=== PATIENT | female | born 1955 | race Caucasian/White ===

== ENCOUNTER 2018-01-22 13:36 | Emergency (ER) | payer OTHER, MEDICARE ==
[~2018-01-22] VITALS: Ht 167.6 cm; Wt 72.6 kg
[2018-01-22 13:52] VITALS: BP 156/100
--- NOTE | 2018-01-22 14:01 | ED GENERAL ADULT ---
History of Present Illness General Chief Complaint: Facial or Head Injury Stated Complaint: + HEAD STRIKE, OVER RIGHT EYE,-LOC, -BLOOD THINNER Source: patient Exam Limitations: no limitations Vital Signs & Intake/Output Vital Signs & Intake/Output Vital Signs Date Time Temp Pulse Resp B/P B/P Pulse O2 O2 Flow FiO2 Mean Ox Delivery Rate 01/22 1352 99.0 74 18 156/100 99 Room Air Allergies Coded Allergies: cephalexin (From KEFLEX) (Mild, ITCHING AND BRUISING 01/22/18) Uncoded Allergies: IV CONTRAST (Severe, NEAR SYNCOPE 01/22/18) Triage Note: RECVEIVED 62 YO FEMALE S/P TRIP AND FALL PRIOR TO ARRIVAL. PT TRIPPED AND HIT HER RIGHT UPPER EYE ON A WINDOW SILL [employer]. PT DENIES LOC. NO DIZZINESS PRIOR TO FALL. MILD NAUSEA, NO VOMITING. SWELLING NOTED ABOVE RIGHT EYE AND EYELID.NO BLEEDING NOTED. PT REFUSING PAIN MEDS IN TRIAGE Triage Nurses Notes Reviewed? 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 Patient states that she tripped and fell striking her head on a windowsill. Denies loss of consciousness. Is not on any anticoagulation. Denies headaches, nausea, vomiting. Denies any other pain from the fall. (Loli Hope) Reconcile Medications Citalopram Hydrobromide (Citalopram HBr) 10 MG TABLET 1 TAB PO DAILY ANXIETY (Reported) Latanoprost 0.005 % DROPS 1 GTT OPH QPM EYE (Reported) Levothyroxine Sodium 75 MCG TABLET 1 TAB PO DAILY THYROID (Reported) Timolol Maleate 0.5 % DROPS 1 GTT OPH QAM EYE (Reported) (Dereck Hightower DO) Past History Travel History Traveled to [place] past 21 day No Medical History Any Pertinent Medical History? see below for history EENT: blindness Surgical History Surgical History: non-contributory Psychosocial History What is your primary language Azeri Family History Hx Contributory? No (Loli Hope) Review of Systems Review of Systems Constitutional: Reports: no symptoms. EENTM: Reports: no symptoms. Respiratory: Reports: no symptoms. Cardiovascular: Reports: no symptoms. GI: Reports: no symptoms. Genitourinary: Reports: no symptoms. Musculoskeletal: Reports: no symptoms. Skin: Reports: see HPI. Neurological/Psychological: Reports: no symptoms. Hematologic/Endocrine: Reports: no symptoms. Immunologic/Allergic: Reports: no symptoms. All Other Systems: Reviewed and Negative (Loli Hope) Physical Exam Physical Exam General Appearance: well developed/nourished, no apparent distress, alert, awake Comments: Primary Survey: Airway: intact Breathing: breath sounds equal bilaterally Circulation: 2+ distal pulses Disability: a&ox3, pupils not reactive and irregular (likely baseline) Secondary Survey: Head: Normocephalic, no skull depressions/deformities, positive right forehead hematoma Ears: No hemotympanum Nose: No epistaxis or septal hematomas Throat/mouth : No oral lacerations, no missing teeth Face: No abrasions/lacerations, no crepitus or deformities Neck: No midline TTP, unrestricted c-spine ROM Heart: Regular rate and rhythm Lungs: Clear to auscultation bilaterally with normal air entry Chest: Nontender, no flail segments Abdomen: Soft, nontender, nondistended, normal bowel sounds Pelvis: Non-tender and stable to AP and lateral compression Extremities: Normal range of motion of all joints, no abrasions/lacerations Neurologic: Cranial nerves grossly intact, no motor/sensory deficitis, cerebellalr function intact Skin: warm and dry and without ecchymoses or abrasions Back: No midline TTP of C-spine, T-spine, or L-spine Rectal exam: deferred Core Measures ACS in differential dx? No CVA/TIA Diagnosis: No Sepsis Present: No Sepsis Focused Exam Completed? No (Loli Hope) Progress Differential Diagnoses I considered the following diagnoses in my evaluation of the patient: [Forehead hematoma versus cranial fracture versus facial fracture versus ICH versus vertebral fracture versus concussion] Plan of Care: Orders Procedure Date/time Status CT FACE/SINUS WITHOUT CONT 01/[address] HEAD WO IV CONTRAST 01/[address] CERV SPINE WO IV CONTRAST 01/[address] scan IMPRESSION: 1. No acute intracranial pathology. 2. Right frontal scalp hematoma and right periorbital soft tissue swelling. However, no evidence of globe or orbital injury. 3. There are no facial bone fractures. 4. No acute fracture or malalignment of the degenerated cervical spine. Patient declining any pain meds. Appears to have isolated hematoma from the fall, no other apparent injuries. Cleared for discharge home. She will use [id number] pain medications if she needs them. Given strict return precautions. Initial ED EKG: none (Loli Hope) Departure Departure Disposition: HOME OR SELF CARE Condition: Stable Clinical Impression Primary Impression: Traumatic hematoma of forehead Secondary Impressions: Fall Referrals: Cecille SANCHEZ,Serge Reynolds (PCP/Family) Additional Instructions: Use Tylenol or ibuprofen as needed for pain. Follow-up with your primary care provider for reevaluation. Return to the emergency department for any new or worsening symptoms. Departure Forms: Customer Survey General Discharge Information (Loli Hope) PA/TYPE CUTTER Co-Sign Statement Statement: ED Attending supervision documentation- [] I saw and evaluated the patient. I have also reviewed all the pertinent lab results and diagnostic results. I agree with the findings and the plan of care as documented in the PA's/TYPE CUTTER's documentation. [X] I have reviewed the ED Record and agree with the PA's/TYPE CUTTER's documentation. [] Additions or exceptions (if any) to the PAs/TYPE CUTTER's note and plan are summarized below: [] (Dereck Hightower DO) Critical Care Note Critical Care Note Critical Care Time: non-applicable (Loli Hope)
--- NOTE | 2018-01-22 15:29 | CT SCAN REPORT ---
EXAMINATION: CT HEAD W/O IV CONTRAST CT CERVICAL SPINE W/O IV CONTRAST CT FACE/SINUS WITHOUT CONTRAST CLINICAL INFORMATION: 62-year-old female status post fall. Evaluate for cervical spine fracture, facial fracture and intracranial hemorrhage. COMPARISON: CT of paranasal sinuses, 04/30/2010. Radiographs of cervical spine, 10/30/2013 TECHNIQUE: Head - Contiguous axial imaging of the head was performed from the skull base to the vertex without the administration of intravenous contrast, and axial images are reconstructed at 0.625 mm, 2.5 mm and 5 mm slice thickness. Cervical spine and facial bones - Volumetric, helical CT acquisitions of the cervical spine and facial bones were obtained without contrast; in addition to the standard set of axial images, multiplanar reformatted images were provided in the coronal and sagittal imaging planes. DLP: 1426 mGy-cm (total) FINDINGS: HEAD: No evidence of intracranial hemorrhage, major vascular territory infarction, focal mass effect or midline shift. Mead to white matter differentiation is preserved. The ventricles have normal size and configuration. The sulci and basilar cisterns are unremarkable. No extra-axial fluid collections. The calvarium is intact and the mastoid air cells and middle ear cavities are clear. FACIAL BONES: A right frontal scalp hematoma measures 0.6 cm AP and there is right periorbital soft tissue swelling. The globes and orbital singh, including lamina papyracea, are intact. Incidentally noted is protrusion of the posterior scleral-uveal coats of each globe -- as may be seen in staphyloma. There is focal calcification of the region of insertion of the left medial rectus muscle. The orbital apex, optic canals, and retrobulbar fat planes are normal. The maxilla, mandible and temporomandibular joints are intact. 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 No evidence of periodontal disease. Nasal bones, pterygoid plates and zygomatic arches are intact. The paranasal sinuses are well-aerated and the ostiomeatal units are patent. There are no air-fluid levels in the paranasal sinuses. CERVICAL SPINE: The occipital condyles, C1 and C2 lateral masses, dens and atlantodental articulation are intact. 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 The vertebral body heights and alignment are maintained. No fractures in the anterior or posterior elements. No prevertebral soft tissue swelling. There is degenerative disc space narrowing and traction osteophyte formation at multiple levels (C4-C5, C5-C6, C6-C7 and T2-T3). The left C3-C4 facet joint is ankylosed. There is left-sided facet osteoarthritis at T1-T2 and T2-T3. There is moderate right-sided facet osteoarthritis at C2-C3. No stenosis of the central spinal canal or neural foramina. No spinal hematoma or focal fluid collection in the visualized neck. The examined lung apices are clear. Thyroid gland is unremarkable. IMPRESSION: 1. No acute intracranial pathology. 2. Right frontal scalp hematoma and right periorbital soft tissue swelling. However, no evidence of globe or orbital injury. 3. There are no facial bone fractures. 4. No acute fracture or malalignment of the degenerated cervical spine.
[2018-01-22] MEDS ORDERED: CITALOPRAM HBR10 MG PO (16:17)
[2018-01-22] MEDS ORDERED: LEVOTHYROXINE75 MCG PO (16:17)
[2018-01-22] MEDS ORDERED: LATANOPROST2.5 ML OPH (16:17)
[2018-01-22] MEDS ORDERED: TIMOLOL MALEATE5 M4 OPH (16:18)
== END 2018-01-22 16:19 ==
LOC: ERH 13:36
DX: S00.83XA Contusion of other part of head, initial encounter (principal); W18.09XA Striking against other object with subsequent fall, initial encounter; Y92.9 Unspecified place or not applicable; Y93.9 Activity, unspecified